=== PATIENT | female | born 1975 | race Asian ===

== ENCOUNTER 2021-09-02 00:28 | Day surgery (SDC) | payer OTHER, SELFPAY ==
[2021-08-26 14:43] VITALS: BMI 27.6
--- NOTE | 2021-08-26 14:54 | PC.NURSE ---
Report to the Outpatient Waiting Room, entrance under the green pavilion located off [facility], at time 0715 on date 09/02/21. OR Time: 0915. - You will be asked a series of questions to screen for COVID 19 for your protection. - A mask is required within the hospital. - No visitors are allowed at this time. Preoperative COVID Testing Requirements: No COVID Test needed if: (proof is required; if not received patient will have Rapid Test prior to entry) - Patient has received COVID Vaccine at least 14 days prior to procedure date or - Patient has positive COVID test result within last 90 days of surgery date. COVID Test needed if above criteria is not met Patients may have clear liquids (water, carbonated beverages, clear teas, apple juice) until 3 hours prior to surgery with a maximum of 20 ounces. - No food from midnight until time of surgery Take the following medications with a SIP of water the morning of surgery: INHALERS, AMLODIPINE Medications to discontinue per physician: VITAMINS/SUPPLEMENTS Date to take last dose: 08/26/21 Please no make-up, nail [place] citizen, hairspray, perfume, deodorant, or body powder the day of surgery. No jewelry (including any body piercings) or valuables the day of surgery, leave them at home. Please take a shower or bath the night before, or the morning of, surgery with an antibacterial soap. Wear comfortable, loose fitting clothing. - Jewelry must be removed prior to entering the operating room. Rings and piercings that are not removed may be cut off. - The hospital will not accept responsibility for valuables. - Please leave all valuables, including medications, at home the day of surgery. If you are going home after surgery, a licensed tractor driver must drive you home. - NO public transportation without another adult. - We recommend that an adult stay with you for 24 hours following discharge. - We also recommend that you do not drive, make important decision, drink alcoholic beverages, or take any drugs that were not prescribed by your health care provider for at least 24 hours after your discharge time. Follow any additional instructions given to you from your surgeon. Telephone instructions given to JERRY ZAVALA and asked if any additional questions and then verbalized understanding. Patient advised to call surgeon office or pre surgery nurse liaison [phone] if any additional questions.
--- NOTE | 2021-09-02 07:33 | WPDHPUPDATE1 ---
History and Physical Update Update Date/Time: 09/02/21 07:33 History and Physical has been reviewed, including an updated exam of the patient. There are NO changes in the patient's condition. Risks, benefits, and alternatives have been discussed and questions answered. Patient agrees to proceed with procedure.
--- NOTE | 2021-09-02 07:34 | PM.HPGS ---
History of Present Illness History of Present Illness Consent: Risks, benefits, and alternatives have been discussed and questions answered. Patient agrees to proceed with procedure. Chief complaint: menorrhaghia, anemia Narrative: Sena Saavedra is a 45 year old female With heavy but regular cycles. Hemoglobin and in the fall was 9.9. Patient presented for her annual exam in June and reported the changes. Hemoglobin done August 13 was 11.3. Ultrasound which was performed in late July revealed a normal size uterus with a possible endometrial mass. It was recommended to proceed with D&C hysteroscopy and possible MyoSure. Risks of infection, bleeding, perforation, and possible fluid overload were reviewed. Possible pathology was discussed. Patient voiced understanding and agrees to proceed. Review of Systems Review of Systems: not repeated day of surgery; patient states no changes in status Constitutional: Constitutional: Reports other ( COVID in early July) [facility] Past Medical History Medical History (Updated 09/02/21 @ 07:38 by Sil Bowser MD) Asthma HTN (hypertension) (normal spontaneous vaginal delivery) Surgical History Surgical History (Updated 09/02/21 @ 07:37 by Sil Bowser MD) H/O breast biopsy 10/14 fibroadenoma History of hysteroscopy 2011 with polyps Social History Social History Smoking status: Never smoker Alcohol intake: never Substance use: never Substance use type: does not use Living arrangements: with family Spiritual care concerns: No Meds Home Medications and Allergies Home Medications Medication Instructions Recorded Confirmed Type albuterol sulfate 1 puff INHALATION PRN PRN 08/26/21 09/02/21 History amlodipine 5 mg PO DAILY 08/26/21 09/02/21 History azelastine 1 spray INTRANASAL DAILY 08/26/21 09/02/21 History ergocalciferol (vitamin D2) 1,250 mcg PO WEEKLY 08/26/21 09/02/21 History ferrous sulfate [Iron (ferrous 325 mg PO BID 08/26/21 09/02/21 History sulfate)] [id number] 1 inh INHALATION DAILY 08/26/21 09/02/21 History [Trelegy Ellipta] levocetirizine [Xyzal] 5 mg PO DAILY 08/26/21 09/02/21 History Allergies Allergy/AdvReac Type Severity Reaction Status Date / Time No Known Allergies Allergy Verified 09/02/21 07:15 Exam Const: General: healthy appearing and alert Orientation/consciousness: patient oriented x3 GI: GI Palp: Yes Soft to palpation, No Tenderness to palpation present (GI) and No Palpable mass present : External Female Exam: normal external appearance Speculum Exam - Vagina: normal appearance of the vagina and normal vaginal discharge Speculum Exam - Cervix: normal appearance of the cervix Bimanual exam- vagina & uterus: uterine size normal and consistency normal Bimanual Exam- Adnexa, other: normal adnexae and No adnexal tenderness Neuro: General: patient oriented x3 Assessment and Plan Assessment and plan (1) Menorrhagia: Code(s): N92.0 - Excessive and frequent menstruation with regular cycle Status: Acute Assessment and Plan: plan to proceed with D&C hysteroscopy
[2021-09-02 07:45] LABS: Hemoglobin 12.3 g/dL (12.0-15.0)
[2021-09-02] MEDS: ACETAMINOPHEN 500 MG TABLET 1000 MG PO (07:47)
[2021-09-02 07:50] VITALS: BP 152/73; PULSE 104; RESP 16; TEMP 36.2; O2SAT 100
[2021-09-02] MEDS: LACTATED RINGERS 1,000 ML 30 ML IV CONT ×2 (07:50→09:32)
--- NOTE | 2021-09-02 08:46 | WPDANESEPPF ---
Anes - Initial Pre Proc Eval Procedure: Operation Date: 09/02/21 09:15 Proposed Procedures p Hysteroscopy, Dilation and Curettage, Possible Myosure - Sil Bowser MD Date/Time: 09/02/21 08:46 Surgeon: Sil Bowser MD Pre Op Diagnosis: menorrhaghia, anemia Patient Data Age: 45 Gender: F Height: 1.55 m Weight: 64.7 kg Last Vital Signs Temp 36.2 C L 09/02/21 07:50 Pulse 104 H 09/02/21 07:50 Resp 16 09/02/21 07:50 BP 152/73 H 09/02/21 07:50 Pulse Ox 100 09/02/21 07:50 Allergies Allergy/AdvReac Type Severity Reaction Status Date / Time No Known Allergies Allergy Verified 09/02/21 07:15 Home Medications Medication Instructions Recorded Confirmed Type albuterol sulfate 1 puff INHALATION PRN PRN 08/26/21 09/02/21 History amlodipine 5 mg PO DAILY 08/26/21 09/02/21 History azelastine 1 spray INTRANASAL DAILY 08/26/21 09/02/21 History ergocalciferol (vitamin D2) 1,250 mcg PO WEEKLY 08/26/21 09/02/21 History ferrous sulfate [Iron (ferrous 325 mg PO BID 08/26/21 09/02/21 History sulfate)] [id number]-[id number] 1 inh INHALATION DAILY 08/26/21 09/02/21 History [Trelegy Ellipta] levocetirizine [Xyzal] 5 mg PO DAILY 08/26/21 09/02/21 History Laboratory Tests 09/02/21 07:39 Hgb 12.3 g/dL g/dL (12.0-15.0) Hct 39.0 % % (37.0-47.0) Patient hx anesthesia problems: none Family hx anesthesia problems: none Results Review: All pre-operative results and documents have been reviewed as part of the pre-operative evaluation. [facility] Past Medical History Medical History Asthma HTN (hypertension) (normal spontaneous vaginal delivery) Surgical History Surgical History H/O breast biopsy 10/14 fibroadenoma History of hysteroscopy 2011 with polyps Social History Social History Smoking status: Never smoker Alcohol intake: never Substance use: never Substance use type: does not use Living arrangements: with family Spiritual care concerns: No Anes - Eval Final PreProcedure Day of Procedure 09/02/21 08:46 Patient weight: overweight Heart: regular rate and rhythm and murmur Lungs: clear to auscultation Airway: Mallampati scale class 1 Neurological: alert and oriented Last oral intake: >/= 8 hours ASA classification: III Emergent: no Anesthetic plan: proceed Anesthesia type and monitoring: general GIVS and standard monitoring Results Review: All pre-operative results and documents have been reviewed as part of the pre-operative evaluation. Informed Consent: The patient's anesthetic plan and its attendant risks and benefits were discussed with the patient/family/POA. Questions were solicited and answers provided to the satisfaction of the patient/family/POA.
[2021-09-02] MEDS: KETOROLAC 30 MG/ML VIAL (*BKC) IV PUSH (09:24)
--- NOTE | 2021-09-02 09:29 | W.PM.PROC2 ---
Procedure Note - Detailed Date of Procedure 09/02/21 Pre-op Diagnosis menorrhaghia, anemia Post-op Diagnosis same Procedure Performed D&C hysteroscopy with MyoSure resection of polyps Surgeon Sil Bowser MD Anesthesia MAC and local Findings Cervix is very stenotic. Uterus sounds to 8cm. At least 9 endometrial polyps. Remainder of the lining appears grossly normal. Description of Procedure The patient was taken to the operating room and placed under anesthesia in the dorsal lithotomy position. She was prepped and draped in the usual sterile fashion. [facility] speculum was placed in the vagina and the cervix is grasped on the anterior lip with a tenaculum. The cervix is injected in each quadrant with 1% lidocaine. The uterus is attempted to be sounded and internal cervical stenosis is noted. The os Finders are used and still unable to enter the cavity. The Hegar dilators are used and still able to enter the cavity. The external cervical os to the stenosis is dilated with Hegar to the 8. The hysteroscope was placed he and using water dissection the cavity opening is visible. The hysteroscope was removed and the small dilator used to push through the cavity aiming for the previously visible opening. The cervix was then able to be serially dilated with Hegar. The uterus is sounded to 8cm. The diagnostic hysteroscope was placed confirming the location. There are multiple polyps. At least 9 are noted. The MyoSure device is opened and placed and under direct visualization the polyps are removed. The MyoSure device was then removed and the medium sharp curette used to sharply curette the endometrium until a good uterine cry was noted in all areas. All instruments were then removed. Sponge, needle, and instrument counts are correct per the OR staff. The patient is awakened from anesthesia and taken to recovery in stable condition. Estimated Blood Loss 5 Drains No Packing No Pathology yes (Endometrial shavings and curettings) Complications No immediate complications Condition stable Disposition PACU
[2021-09-02 09:32] VITALS: BP 112/71; PULSE 78; RESP 16; O2SAT 97
[2021-09-02 10:00] VITALS: BP 110/66; PULSE 90; RESP 16; O2SAT 95
[2021-09-02 10:30] VITALS: BP 106/56; PULSE 71; RESP 16
== END 2021-09-02 10:49 | disposition home or self-care (01) ==
PROVIDERS: Anesthesiology; Visit Provider Obstetrics & Gynecology Gynecology
PROC: 0U5B8ZZ Destruction of Endometrium, Via Natural or Artificial Opening Endoscopic (ICD-10-PCS; CPT 58563; principal; 2021-09-02 09:15)
DX: N92.0 Excessive and frequent menstruation with regular cycle (principal); N84.0 Polyp of corpus uteri; D64.9 Anemia, unspecified; J45.909 Unspecified asthma, uncomplicated; I10 Essential (primary) hypertension; Z79.51 Long term (current) use of inhaled steroids
CPT/HCPCS: 58558; 36415; 85014; 85018; 88305; A9270; J1100; J1885; J2250; J2405; J2704; J7030; J7120